=== PATIENT | male | born 1950 | race Caucasian/White ===

== ENCOUNTER 2019-09-25 08:06 | Inpatient (IN) ==
[2019-09-25] MEDS ORDERED: SODIUM CHLORIDE 0.9% 1,000 ML IV SCH (14:00)
[2019-09-25 14:11] LABS: Basophils % 0.1 % (0.0-0.8); Eosinophils # 0.2 10*3/uL (0.0-0.87); Eosinophils % 1.9 % (0.00-10.9); Hematocrit 28.5 VOL% (42.0-52.0); Hemoglobin 9.3 GM/DL (14.0-18.0); Immature Granulocytes % 1.1 %; Immature Granulocytes Absolute 0.09 #; Lymphocytes # 1.1 10*3/uL (1.4-4.0); Mean Corpuscular HGB Conc 32.6 GM/DL (32-36); Mean Corpuscular Volume 82.4 FL (87-102); Mean Platelet Volume 11.1 FL (9.6-12.0); Monocytes % 9.6 % (1.7-12.7); NRBC # 0.08 10*3/uL; Neutrophils % 73.3 % (38.7-73.9); Platelet Count 175 T/CUMM (130-400); Red Blood Count 3.46 MC/CUMM (3.8-5.5); Red Cell Distribution Width 16.6 % (9.3-17.3)
[2019-09-25 14:28] LABS: Alanine Aminotransferase 16 U/L (16-61); Albumin 3.2 G/DL (3.4-5.0); Alkaline Phosphatase 101 U/L (45-117); Aspartate Amino Transferase 9 U/L (0-37); Bilirubin,Total < 0.39 MG/DL (0.2-1.0); Blood Urea Nitrogen 114 MG/DL (7-18); Calcium 7.9 MG/DL (8.5-10.1); Estimated Glom Filtration Rate 12 ML/MIN; Glucose 93 MG/DL (74-106); Osmolality,Calculated 297.7 MOS/KG (273-304); Total Protein 7.4 G/DL (6.4-8.3)
[2019-09-25 14:37] LABS: ABG HCO3 11.6 MMOL/L (20-26); ABG Oxygen Saturation 95.8 % (95-100); ABG PCO2 42.6 MM HG (35-48); ABG TCO2 12.1 MMOL/L (23-27)
[2019-09-25 14:40] LABS: ABG PH 7.076 (7.35-7.45)
[2019-09-25] MEDS ORDERED: GLUCAGON 1 MG VIAL IM PRN (14:47)
[2019-09-25] MEDS ORDERED: ONDANSETRON 4 MG/2 ML VIAL IV PRN (14:47)
[2019-09-25] MEDS ORDERED: hydrALAZINE 20 MG/1 ML VIAL IV PRN (14:47)
[2019-09-25] MEDS ORDERED: DEXTROSE 50% 25 GM/50 ML VIAL IV PRN (14:47)
[2019-09-25] MEDS ORDERED: ACETAMINOPHEN 325 MG TABLET PO PRN (14:47)
[2019-09-25] MEDS ORDERED: SODIUM BICARBONATE 50 MEQ/50 ML VIAL IV ONE (14:53)
[2019-09-25] MEDS ORDERED: FUROSEMIDE 100 MG/10 ML VIAL IV ONE (15:14)
[2019-09-25 15:32] LABS: Alanine Aminotransferase 12 U/L (16-61); Albumin 3.2 G/DL (3.4-5.0); Alkaline Phosphatase 99 U/L (45-117); Aspartate Amino Transferase 11 U/L (0-37); Bilirubin,Total < 0.39 MG/DL (0.2-1.0); Blood Urea Nitrogen 119 MG/DL (7-18); Estimated Glom Filtration Rate 12 ML/MIN; Glucose 94 MG/DL (74-106); HDL Cholesterol 22 MG/DL (40-60); Osmolality,Calculated 299.7 MOS/KG (273-304); Risk Ratio 2.59; Total Protein 7.3 G/DL (6.4-8.3); Triglycerides 71 MG/DL (2-150); VLDL CHOLESTEROL 14.2 MG/DL
[2019-09-25] MEDS: SODIUM BICARB INJ 150 MEQ in STERILE WATER INJ 1,000 ML IV SCH (16:44)
[2019-09-25] MEDS: INSULIN LISPRO 100 UNIT/ML SUBCUT SCH ×2 (16:45→21:47)
[2019-09-25] MEDS: DOCUSATE SODIUM 100 MG CAPSULE PO SCH (21:48)
[2019-09-26 04:19] LABS: Calcium 7.7 MG/DL (8.5-10.1); Osmolality,Calculated 305.1 MOS/KG (273-304)
[2019-09-26 05:08] LABS: Basophils % 0.2 % (0.0-0.8); Eosinophils # 0.1 10*3/uL (0.0-0.87); Eosinophils % 1.4 % (0.00-10.9); Hematocrit 28.4 VOL% (42.0-52.0); Immature Granulocytes % 1.3 %; Immature Granulocytes Absolute 0.08 #; Lymphocytes # 0.8 10*3/uL (1.4-4.0); Lymphocytes % 12.6 % (21.2-54.2); Mean Corpuscular HGB Conc 31.7 GM/DL (32-36); Mean Corpuscular Volume 82.6 FL (87-102); Mean Platelet Volume 11.4 FL (9.6-12.0); Monocytes % 9.1 % (1.7-12.7); NRBC # 0.06 10*3/uL; Neutrophils % 75.4 % (38.7-73.9); Platelet Count 175 T/CUMM (130-400); Red Blood Count 3.44 MC/CUMM (3.8-5.5); Red Cell Distribution Width 16.1 % (9.3-17.3); White Blood Count 6.3 T/CUMM (4-12)
[2019-09-26 06:12] LABS: Apearance,Urine CLEAR (Clear); Bacteria,Urine Occasional /HPF (Few); Bilirubin,Urine Negative (Negative); Blood, Urine Small mg/dL (Negative); Glucose,Urine (UA) Negative (Negative); Hyaline Casts,Urine 12 /LPF (0-3); Ketones,Urine Negative (Negative); Mucus,Urine Occasional /LPF (Occasional); Nitrite,Urine Negative (Negative); Protein,Urine Negative; RBC,Urine 1 /HPF (0-4); Squamous Epithelial Cell,Urine Occasional /HPF (0-10); Urine Color Yellow (Yellow); Urine Specific Gravity 1.011 (1.001-1.035); Urine Urobilinogen < 2.0 EU/DL (0.2-1.0); WBC,Urine 3 /HPF (0-6)
[2019-09-26] MEDS: SODIUM BICARB INJ 150 MEQ in STERILE WATER INJ 1,000 ML IV SCH (06:45)
[2019-09-26 07:49] LABS: Alanine Aminotransferase 15 U/L (16-61); Albumin 3.1 G/DL (3.4-5.0); Alkaline Phosphatase 105 U/L (45-117); Aspartate Amino Transferase 12 U/L (0-37); Bilirubin,Direct < 0.100 MG/DL (0.0-0.20); Bilirubin,Indirect 0.3 MG/DL (0.0-1.0); Bilirubin,Total < 0.39 MG/DL (0.2-1.0); Total Protein 7.1 G/DL (6.4-8.3)
[2019-09-26 08:34] LABS: ABG Base Excess -10.7 MMOL/L (-2.5-2.5); ABG HCO3 17.5 MMOL/L (20-26); ABG Oxygen Saturation 97.4 % (95-100); ABG PCO2 49.6 MM HG (35-48); ABG PO2 119.5 MM HG (80-95); Allen Test Positive; Pt O2 Delivery Device BIPAP
[2019-09-26 08:36] LABS: ABG PH 7.165 (7.35-7.45)
[2019-09-26] MEDS ORDERED: metOLazone 5 MG TABLET PO SCH (09:00)
[2019-09-26] MEDS: DOCUSATE SODIUM 100 MG CAPSULE PO SCH ×2 (10:13→21:14)
[2019-09-26] MEDS ORDERED: SODIUM BICARBONATE 50 MEQ/50 ML VIAL IV ONE (11:28)
[2019-09-26] MEDS: HEPARIN 5,000 UNIT/1 ML VIAL SUBCUT SCH ×2 (14:34→23:41)
[2019-09-26] MEDS: ISOSORBIDE MONONITRATE 30 MG TABLET PO SCH (14:35)
[2019-09-26] MEDS: POTASSIUM CHLORIDE 20 MEQ TABLET PO SCH ×2 (14:35→21:14)
[2019-09-26] MEDS ORDERED: FUROSEMIDE 100 MG/10 ML VIAL IV SCH (16:00)
[2019-09-26] MEDS: SIMVASTATIN 20 MG TABLET PO SCH (21:14)
[2019-09-26] MEDS: carvediloL 3.125 MG TABLET PO SCH (21:14)
[2019-09-27 04:15] LABS: Basophils % 0.2 % (0.0-0.8); Eosinophils # 0.1 10*3/uL (0.0-0.87); Eosinophils % 1.3 % (0.00-10.9); Hematocrit 26.4 VOL% (42.0-52.0); Hemoglobin 8.5 GM/DL (14.0-18.0); Immature Granulocytes % 0.9 %; Immature Granulocytes Absolute 0.05 #; Lymphocytes # 0.6 10*3/uL (1.4-4.0); Lymphocytes % 10.2 % (21.2-54.2); Mean Corpuscular HGB Conc 32.2 GM/DL (32-36); Mean Corpuscular Volume 81.7 FL (87-102); Mean Platelet Volume 10.6 FL (9.6-12.0); Monocytes % 10.4 % (1.7-12.7); NRBC # 0.07 10*3/uL; Platelet Count 174 T/CUMM (130-400); Red Blood Count 3.23 MC/CUMM (3.8-5.5); Red Cell Distribution Width 16.1 % (9.3-17.3); White Blood Count 5.6 T/CUMM (4-12)
[2019-09-27 04:38] LABS: Calcium 7.1 MG/DL (8.5-10.1); Osmolality,Calculated 316.2 MOS/KG (273-304)
[2019-09-27 08:05] LABS: ABG Base Excess -6.6 MMOL/L (-2.5-2.5); ABG HCO3 20.7 MMOL/L (20-26); ABG PCO2 50.5 MM HG (35-48); ABG PH 7.231 (7.35-7.45); ABG PO2 135.2 MM HG (80-95); ABG TCO2 22.3 MMOL/L (23-27)
[2019-09-27] MEDS: carvediloL 3.125 MG TABLET PO SCH ×2 (09:11→21:04)
[2019-09-27] MEDS: POTASSIUM CHLORIDE 20 MEQ TABLET PO SCH ×3 (09:11→21:04)
[2019-09-27] MEDS: ISOSORBIDE MONONITRATE 30 MG TABLET PO SCH (09:11)
[2019-09-27] MEDS: DOCUSATE SODIUM 100 MG CAPSULE PO SCH (09:12)
[2019-09-27] MEDS ORDERED: DOCUSATE SODIUM 100 MG CAPSULE PO PRN (11:35)
[2019-09-27] MEDS: HEPARIN 5,000 UNIT/1 ML VIAL SUBCUT SCH (12:30)
[2019-09-27] MEDS ORDERED: SODIUM BICARBONATE 50 MEQ/50 ML VIAL IV ONE (12:44)
[2019-09-27] MEDS: SIMVASTATIN 20 MG TABLET PO SCH (21:04)
[2019-09-27] MEDS: GLIMEPIRIDE 4 MG TABLET PO SCH (21:04)
[2019-09-28] MEDS: HEPARIN 5,000 UNIT/1 ML VIAL SUBCUT SCH ×2 (00:21→12:39)
[2019-09-28 03:34] LABS: Allen Test Positive; Pt O2 Delivery Device BIPAP
[2019-09-28 03:35] LABS: ABG Base Excess -7.3 MMOL/L (-2.5-2.5); ABG HCO3 18.9 MMOL/L (20-26); ABG PCO2 40.2 MM HG (35-48); ABG PH 7.289 (7.35-7.45); ABG PO2 77.9 MM HG (80-95); ABG TCO2 20.1 MMOL/L (23-27)
[2019-09-28 03:36] LABS: ABG Oxygen Saturation 94.2 % (95-100)
[2019-09-28 05:48] LABS: Basophils % 0.2 % (0.0-0.8); Eosinophils # 0.1 10*3/uL (0.0-0.87); Eosinophils % 1.8 % (0.00-10.9); Hematocrit 24.1 VOL% (42.0-52.0); Immature Granulocytes % 1.8 %; Immature Granulocytes Absolute 0.11 #; Lymphocytes % 16.6 % (21.2-54.2); Mean Corpuscular HGB Conc 33.2 GM/DL (32-36); Mean Corpuscular Volume 79.5 FL (87-102); Mean Platelet Volume 11.1 FL (9.6-12.0); Monocytes % 11.5 % (1.7-12.7); NRBC # 0.11 10*3/uL; Neutrophils % 68.1 % (38.7-73.9); Platelet Count 176 T/CUMM (130-400); Red Blood Count 3.03 MC/CUMM (3.8-5.5); Red Cell Distribution Width 16.2 % (9.3-17.3)
[2019-09-28 05:52] LABS: Calcium 7.1 MG/DL (8.5-10.1); Osmolality,Calculated 315.4 MOS/KG (273-304)
[2019-09-28] MEDS: SODIUM BICARBONATE 650 MG TABLET PO SCH ×2 (08:45→21:01)
[2019-09-28] MEDS: carvediloL 3.125 MG TABLET PO SCH ×2 (08:45→21:01)
[2019-09-28] MEDS: GLIMEPIRIDE 4 MG TABLET PO SCH (08:46)
[2019-09-28] MEDS: ISOSORBIDE MONONITRATE 30 MG TABLET PO SCH (08:46)
[2019-09-28] MEDS: POTASSIUM CHLORIDE 20 MEQ TABLET PO SCH ×3 (08:46→21:01)
[2019-09-28] MEDS: allopurinoL 100 MG TABLET PO SCH (08:46)
[2019-09-28] MEDS: ASCORBIC ACID 500 MG TABLET PO SCH (08:46)
[2019-09-28] MEDS: SIMVASTATIN 20 MG TABLET PO SCH (21:01)
[2019-09-29] MEDS: HEPARIN 5,000 UNIT/1 ML VIAL SUBCUT SCH ×2 (00:15→13:32)
[2019-09-29 05:05] LABS: Basophils % 0.3 % (0.0-0.8); Eosinophils # 0.1 10*3/uL (0.0-0.87); Eosinophils % 1.9 % (0.00-10.9); Hematocrit 26.1 VOL% (42.0-52.0); Hemoglobin 8.5 GM/DL (14.0-18.0); Immature Granulocytes % 1.2 %; Immature Granulocytes Absolute 0.09 #; Lymphocytes # 1.4 10*3/uL (1.4-4.0); Lymphocytes % 18.7 % (21.2-54.2); Mean Corpuscular HGB Conc 32.6 GM/DL (32-36); Mean Corpuscular Volume 80.1 FL (87-102); Mean Platelet Volume 11.7 FL (9.6-12.0); Monocytes % 10.3 % (1.7-12.7); NRBC # 0.12 10*3/uL; Neutrophils % 67.6 % (38.7-73.9); Platelet Count 197 T/CUMM (130-400); Red Blood Count 3.26 MC/CUMM (3.8-5.5); Red Cell Distribution Width 16.6 % (9.3-17.3); White Blood Count 7.3 T/CUMM (4-12)
[2019-09-29 05:31] LABS: Calcium 7.6 MG/DL (8.5-10.1); Osmolality,Calculated 311.4 MOS/KG (273-304)
[2019-09-29] MEDS: SODIUM BICARBONATE 650 MG TABLET PO SCH ×2 (08:31→20:28)
[2019-09-29] MEDS: POTASSIUM CHLORIDE 20 MEQ TABLET PO SCH ×3 (08:32→20:28)
[2019-09-29] MEDS: allopurinoL 100 MG TABLET PO SCH (08:32)
[2019-09-29] MEDS: ISOSORBIDE MONONITRATE 30 MG TABLET PO SCH (08:32)
[2019-09-29] MEDS: carvediloL 3.125 MG TABLET PO SCH ×2 (08:32→20:28)
[2019-09-29] MEDS: ASCORBIC ACID 500 MG TABLET PO SCH (08:32)
[2019-09-29] MEDS: SIMVASTATIN 20 MG TABLET PO SCH (20:28)
[2019-09-29] MEDS: prednisoLONE ACETATE 1% OPH SUSP 5 ML BOTTLE RIGHT EYE SCH (20:29)
[2019-09-30] MEDS: HEPARIN 5,000 UNIT/1 ML VIAL SUBCUT SCH ×2 (02:15→13:57)
[2019-09-30 05:43] LABS: Basophils % 0.4 % (0.0-0.8); Eosinophils # 0.2 10*3/uL (0.0-0.87); Eosinophils % 3.2 % (0.00-10.9); Hematocrit 26.3 VOL% (42.0-52.0); Hemoglobin 8.3 GM/DL (14.0-18.0); Immature Granulocytes % 0.9 %; Immature Granulocytes Absolute 0.05 #; Lymphocytes % 18.1 % (21.2-54.2); Mean Corpuscular HGB Conc 31.6 GM/DL (32-36); Mean Platelet Volume 10.4 FL (9.6-12.0); Monocytes % 10.9 % (1.7-12.7); NRBC # 0.06 10*3/uL; Neutrophils % 66.5 % (38.7-73.9); Platelet Count 182 T/CUMM (130-400); Red Blood Count 3.17 MC/CUMM (3.8-5.5); Red Cell Distribution Width 16.3 % (9.3-17.3); White Blood Count 5.7 T/CUMM (4-12)
[2019-09-30 06:04] LABS: Calcium 8.1 MG/DL (8.5-10.1); Osmolality,Calculated 311.5 MOS/KG (273-304)
[2019-09-30] MEDS: ISOSORBIDE MONONITRATE 30 MG TABLET PO SCH (10:16)
[2019-09-30] MEDS: SODIUM BICARBONATE 650 MG TABLET PO SCH ×2 (10:16→22:33)
[2019-09-30] MEDS: allopurinoL 100 MG TABLET PO SCH (10:16)
[2019-09-30] MEDS: ASCORBIC ACID 500 MG TABLET PO SCH (10:16)
[2019-09-30] MEDS: POTASSIUM CHLORIDE 20 MEQ TABLET PO SCH ×3 (10:16→22:33)
[2019-09-30] MEDS: carvediloL 3.125 MG TABLET PO SCH ×2 (10:17→22:32)
[2019-09-30] MEDS: prednisoLONE ACETATE 1% OPH SUSP 5 ML BOTTLE RIGHT EYE SCH ×2 (10:19→22:34)
[2019-09-30] MEDS: MOXIFLOXACIN 0.5% OPH SOLN 3 ML BOTTLE BOTH EYES SCH ×4 (10:20→22:34)
[2019-09-30] MEDS ORDERED: BACITRACIN OPH OINT 3.5 GM TUBE BOTH EYES SCH (21:00)
[2019-09-30] MEDS: SIMVASTATIN 20 MG TABLET PO SCH (22:32)
[2019-10-01] MEDS: HEPARIN 5,000 UNIT/1 ML VIAL SUBCUT SCH ×2 (00:06→12:08)
[2019-10-01] MEDS: VANCOMYCIN 50 MG/ML 60 ML/BOTTLE PO SCH ×4 (00:06→17:34)
[2019-10-01 05:38] LABS: Basophils % 0.4 % (0.0-0.8); Eosinophils # 0.2 10*3/uL (0.0-0.87); Eosinophils % 3.9 % (0.00-10.9); Hematocrit 26.3 VOL% (42.0-52.0); Hemoglobin 8.4 GM/DL (14.0-18.0); Immature Granulocytes % 0.7 %; Immature Granulocytes Absolute 0.04 #; Lymphocytes % 17.7 % (21.2-54.2); Mean Corpuscular HGB Conc 31.9 GM/DL (32-36); Mean Platelet Volume 10.4 FL (9.6-12.0); Monocytes % 9.5 % (1.7-12.7); NRBC # 0.04 10*3/uL; Neutrophils % 67.8 % (38.7-73.9); Platelet Count 166 T/CUMM (130-400); Red Blood Count 3.17 MC/CUMM (3.8-5.5); Red Cell Distribution Width 16.6 % (9.3-17.3); White Blood Count 5.4 T/CUMM (4-12)
[2019-10-01 06:05] LABS: Calcium 8.3 MG/DL (8.5-10.1); Osmolality,Calculated 312.4 MOS/KG (273-304)
[2019-10-01] MEDS: SODIUM BICARBONATE 650 MG TABLET PO SCH ×2 (09:38→20:49)
[2019-10-01] MEDS: prednisoLONE ACETATE 1% OPH SUSP 5 ML BOTTLE RIGHT EYE SCH ×2 (09:38→20:50)
[2019-10-01] MEDS: ISOSORBIDE MONONITRATE 30 MG TABLET PO SCH (09:39)
[2019-10-01] MEDS: carvediloL 3.125 MG TABLET PO SCH ×2 (09:39→20:49)
[2019-10-01] MEDS: POTASSIUM CHLORIDE 20 MEQ TABLET PO SCH ×3 (09:39→20:49)
[2019-10-01] MEDS: allopurinoL 100 MG TABLET PO SCH (09:39)
[2019-10-01] MEDS: ASCORBIC ACID 500 MG TABLET PO SCH (09:39)
[2019-10-01] MEDS: MOXIFLOXACIN 0.5% OPH SOLN 3 ML BOTTLE BOTH EYES SCH ×6 (09:45→21:46)
[2019-10-01] MEDS: TOBRAMYCIN 0.3% OPH SOLN 5 ML BOTTLE BOTH EYES SCH ×4 (15:39→21:43)
[2019-10-01] MEDS: ERYTHROMYCIN 0.5% OPHT OINT 3.5 GM TUBE BOTH EYES SCH ×4 (15:43→21:46)
[2019-10-01] MEDS: SIMVASTATIN 20 MG TABLET PO SCH (20:49)
[2019-10-02] MEDS: HEPARIN 5,000 UNIT/1 ML VIAL SUBCUT SCH ×3 (00:11→23:46)
[2019-10-02] MEDS: MOXIFLOXACIN 0.5% OPH SOLN 3 ML BOTTLE BOTH EYES SCH ×12 (00:12→23:48)
[2019-10-02] MEDS: TOBRAMYCIN 0.3% OPH SOLN 5 ML BOTTLE BOTH EYES SCH ×12 (00:14→23:48)
[2019-10-02] MEDS: ERYTHROMYCIN 0.5% OPHT OINT 3.5 GM TUBE BOTH EYES SCH ×12 (00:15→23:48)
[2019-10-02] MEDS: VANCOMYCIN 50 MG/ML 60 ML/BOTTLE PO SCH ×5 (00:15→23:49)
[2019-10-02 05:27] LABS: Basophils % 0.4 % (0.0-0.8); Eosinophils # 0.3 10*3/uL (0.0-0.87); Eosinophils % 5.7 % (0.00-10.9); Hematocrit 28.4 VOL% (42.0-52.0); Hemoglobin 8.9 GM/DL (14.0-18.0); Immature Granulocytes % 0.8 %; Immature Granulocytes Absolute 0.04 #; Lymphocytes # 0.9 10*3/uL (1.4-4.0); Lymphocytes % 16.6 % (21.2-54.2); Mean Corpuscular HGB Conc 31.3 GM/DL (32-36); Mean Corpuscular Volume 84.3 FL (87-102); Mean Platelet Volume 10.9 FL (9.6-12.0); Monocytes % 7.8 % (1.7-12.7); NRBC # 0.02 10*3/uL; Neutrophils % 68.7 % (38.7-73.9); Platelet Count 170 T/CUMM (130-400); Red Blood Count 3.37 MC/CUMM (3.8-5.5); Red Cell Distribution Width 16.6 % (9.3-17.3); White Blood Count 5.2 T/CUMM (4-12)
[2019-10-02 05:48] LABS: Osmolality,Calculated 309.8 MOS/KG (273-304)
[2019-10-02] MEDS: allopurinoL 100 MG TABLET PO SCH (10:29)
[2019-10-02] MEDS: ISOSORBIDE MONONITRATE 30 MG TABLET PO SCH (10:29)
[2019-10-02] MEDS: POTASSIUM CHLORIDE 20 MEQ TABLET PO SCH (10:30)
[2019-10-02] MEDS: SODIUM BICARBONATE 650 MG TABLET PO SCH ×2 (10:30→21:44)
[2019-10-02] MEDS: carvediloL 3.125 MG TABLET PO SCH ×2 (10:30→21:44)
[2019-10-02] MEDS: ASCORBIC ACID 500 MG TABLET PO SCH (10:31)
[2019-10-02] MEDS: prednisoLONE ACETATE 1% OPH SUSP 5 ML BOTTLE RIGHT EYE SCH ×2 (10:32→21:44)
[2019-10-02] MEDS: SIMVASTATIN 20 MG TABLET PO SCH (21:44)
[2019-10-03] MEDS: TOBRAMYCIN 0.3% OPH SOLN 5 ML BOTTLE BOTH EYES SCH ×7 (02:27→22:29)
[2019-10-03] MEDS: MOXIFLOXACIN 0.5% OPH SOLN 3 ML BOTTLE BOTH EYES SCH ×7 (02:29→22:30)
[2019-10-03] MEDS: ERYTHROMYCIN 0.5% OPHT OINT 3.5 GM TUBE BOTH EYES SCH ×7 (02:31→22:32)
[2019-10-03 04:51] LABS: Eosinophils # 0.3 10*3/uL (0.0-0.87); Eosinophils % 4.9 % (0.00-10.9); Hematocrit 27.2 VOL% (42.0-52.0); Hemoglobin 8.3 GM/DL (14.0-18.0); Immature Granulocytes % 0.4 %; Immature Granulocytes Absolute 0.02 #; Mean Corpuscular HGB Conc 30.5 GM/DL (32-36); Mean Platelet Volume 11.4 FL (9.6-12.0); Monocytes % 7.4 % (1.7-12.7); Neutrophils % 68.3 % (38.7-73.9); Platelet Count 156 T/CUMM (130-400); Red Cell Distribution Width 16.6 % (9.3-17.3); White Blood Count 5.3 T/CUMM (4-12)
[2019-10-03 05:16] LABS: Calcium 8.3 MG/DL (8.5-10.1); Osmolality,Calculated 309.5 MOS/KG (273-304)
[2019-10-03] MEDS: VANCOMYCIN 50 MG/ML 60 ML/BOTTLE PO SCH ×3 (05:44→17:58)
[2019-10-03] MEDS: carvediloL 3.125 MG TABLET PO SCH ×2 (08:36→22:21)
[2019-10-03] MEDS: SODIUM BICARBONATE 650 MG TABLET PO SCH ×2 (10:01→22:21)
[2019-10-03] MEDS: ASCORBIC ACID 500 MG TABLET PO SCH (10:01)
[2019-10-03] MEDS: allopurinoL 100 MG TABLET PO SCH (10:02)
[2019-10-03] MEDS: ISOSORBIDE MONONITRATE 30 MG TABLET PO SCH (10:02)
[2019-10-03] MEDS: POTASSIUM CHLORIDE 20 MEQ TABLET PO SCH (10:02)
[2019-10-03] MEDS: prednisoLONE ACETATE 1% OPH SUSP 5 ML BOTTLE RIGHT EYE SCH ×2 (10:03→22:23)
[2019-10-03] MEDS: HEPARIN 5,000 UNIT/1 ML VIAL SUBCUT SCH (14:02)
[2019-10-03] MEDS: SIMVASTATIN 20 MG TABLET PO SCH (22:21)
[2019-10-04] MEDS: HEPARIN 5,000 UNIT/1 ML VIAL SUBCUT SCH ×2 (00:36→14:32)
[2019-10-04] MEDS: VANCOMYCIN 50 MG/ML 60 ML/BOTTLE PO SCH ×4 (00:36→18:24)
[2019-10-04] MEDS: MOXIFLOXACIN 0.5% OPH SOLN 3 ML BOTTLE BOTH EYES SCH ×6 (02:30→21:27)
[2019-10-04] MEDS: TOBRAMYCIN 0.3% OPH SOLN 5 ML BOTTLE BOTH EYES SCH ×6 (02:32→21:26)
[2019-10-04] MEDS: ERYTHROMYCIN 0.5% OPHT OINT 3.5 GM TUBE BOTH EYES SCH ×6 (02:37→21:27)
[2019-10-04] MEDS: allopurinoL 100 MG TABLET PO SCH (09:16)
[2019-10-04] MEDS: ASCORBIC ACID 500 MG TABLET PO SCH (09:16)
[2019-10-04] MEDS: POTASSIUM CHLORIDE 20 MEQ TABLET PO SCH (09:16)
[2019-10-04] MEDS: ISOSORBIDE MONONITRATE 30 MG TABLET PO SCH (09:16)
[2019-10-04] MEDS: carvediloL 3.125 MG TABLET PO SCH (09:17)
[2019-10-04] MEDS: SODIUM BICARBONATE 650 MG TABLET PO SCH ×2 (09:17→21:17)
[2019-10-04] MEDS: prednisoLONE ACETATE 1% OPH SUSP 5 ML BOTTLE RIGHT EYE SCH ×2 (09:19→21:26)
[2019-10-04] MEDS: SIMVASTATIN 20 MG TABLET PO SCH (21:17)
[2019-10-04] MEDS: carvediloL 6.25 MG TABLET PO SCH (21:17)
[2019-10-05] MEDS: HEPARIN 5,000 UNIT/1 ML VIAL SUBCUT SCH ×2 (00:15→12:24)
[2019-10-05] MEDS: VANCOMYCIN 50 MG/ML 60 ML/BOTTLE PO SCH ×3 (00:15→12:24)
[2019-10-05] MEDS: TOBRAMYCIN 0.3% OPH SOLN 5 ML BOTTLE BOTH EYES SCH ×3 (02:13→09:40)
[2019-10-05] MEDS: ERYTHROMYCIN 0.5% OPHT OINT 3.5 GM TUBE BOTH EYES SCH ×3 (02:13→09:41)
[2019-10-05] MEDS: MOXIFLOXACIN 0.5% OPH SOLN 3 ML BOTTLE BOTH EYES SCH ×3 (02:14→09:39)
[2019-10-05 06:38] LABS: Basophils % 0.4 % (0.0-0.8); Eosinophils # 0.3 10*3/uL (0.0-0.87); Eosinophils % 5.5 % (0.00-10.9); Hematocrit 27.1 VOL% (42.0-52.0); Hemoglobin 8.5 GM/DL (14.0-18.0); Immature Granulocytes % 0.4 %; Immature Granulocytes Absolute 0.02 #; Lymphocytes # 0.7 10*3/uL (1.4-4.0); Lymphocytes % 14.5 % (21.2-54.2); Mean Corpuscular HGB Conc 31.4 GM/DL (32-36); Mean Corpuscular Volume 84.4 FL (87-102); Mean Platelet Volume 11.1 FL (9.6-12.0); Monocytes % 5.1 % (1.7-12.7); Neutrophils % 74.1 % (38.7-73.9); Platelet Count 143 T/CUMM (130-400); Red Blood Count 3.21 MC/CUMM (3.8-5.5); Red Cell Distribution Width 16.4 % (9.3-17.3)
[2019-10-05 06:59] LABS: Albumin 2.9 G/DL (3.4-5.0); Bilirubin,Total 1.2 MG/DL (0.2-1.0); Calcium 8.6 MG/DL (8.5-10.1); Osmolality,Calculated 305.7 MOS/KG (273-304); Total Protein 7.1 G/DL (6.4-8.3)
[2019-10-05] MEDS: SODIUM BICARBONATE 650 MG TABLET PO SCH (09:28)
[2019-10-05] MEDS: ASCORBIC ACID 500 MG TABLET PO SCH (09:28)
[2019-10-05] MEDS: ISOSORBIDE MONONITRATE 30 MG TABLET PO SCH (09:29)
[2019-10-05] MEDS: POTASSIUM CHLORIDE 20 MEQ TABLET PO SCH (09:29)
[2019-10-05] MEDS: allopurinoL 100 MG TABLET PO SCH (09:29)
[2019-10-05] MEDS: carvediloL 6.25 MG TABLET PO SCH (09:29)
[2019-10-05] MEDS: prednisoLONE ACETATE 1% OPH SUSP 5 ML BOTTLE RIGHT EYE SCH (09:37)
[2019-10-05 12:07] VITALS: BP 147/74
== END 2019-10-05 16:00 | disposition home health service (06) | DRG 682 ==
LOC: N.5E 08:50 → SUATTDRO 12:08 → N.CC 15:28 → N.3E 09-27 16:30
PROVIDERS: ADMIT Internal Medicine; ATTEND Internal Medicine

== ENCOUNTER 2020-03-15 11:07 | Inpatient (IN) ==
[2020-03-15 11:51] LABS: Basophils % 0.3 % (0.0-0.8); Eosinophils # 0.3 10*3/uL (0.0-0.87); Eosinophils % 5.3 % (0.00-10.9); Hematocrit 22.4 VOL% (42.0-52.0); Hemoglobin 7.2 GM/DL (14.0-18.0); Immature Granulocytes % 1.1 %; Immature Granulocytes Absolute 0.07 #; Lymphocytes # 0.6 10*3/uL (1.4-4.0); Lymphocytes % 9.7 % (21.2-54.2); Mean Corpuscular HGB Conc 32.1 GM/DL (32-36); Mean Corpuscular Volume 79.4 FL (87-102); Mean Platelet Volume 11.3 FL (9.6-12.0); Monocytes % 8.7 % (1.7-12.7); NRBC # 0.09 10*3/uL; Neutrophils % 74.9 % (38.7-73.9); Platelet Count 197 T/CUMM (130-400); Red Blood Count 2.82 MC/CUMM (3.8-5.5); Red Cell Distribution Width 18.3 % (9.3-17.3); White Blood Count 6.2 T/CUMM (4-12)
[2020-03-15 12:02] LABS: INR 1.2; PT Patient Result 12.4 SECS (9.8-11.9)
[2020-03-15 12:23] LABS: Alanine Aminotransferase 13 U/L (16-61); Albumin 3.1 G/DL (3.4-5.0); Alkaline Phosphatase 89 U/L (45-117); Aspartate Amino Transferase 8 U/L (0-37); Bilirubin,Total < 0.39 MG/DL (0.2-1.0); Blood Urea Nitrogen 158 MG/DL (7-18); Estimated Glom Filtration Rate 4 ML/MIN; Glucose 216 MG/DL (74-106); Osmolality,Calculated 326.2 MOS/KG (273-304); Total Protein 6.9 G/DL (6.4-8.3)
[2020-03-15 12:26] LABS: Calcium 5.8 MG/DL (8.5-10.1)
[2020-03-15 14:09] LABS: Alanine Aminotransferase 11 U/L (16-61); Albumin 3.1 G/DL (3.4-5.0); Alkaline Phosphatase 87 U/L (45-117); Aspartate Amino Transferase 8 U/L (0-37); Bilirubin,Direct < 0.100 MG/DL (0.0-0.20); Bilirubin,Indirect 0.3 MG/DL (0.0-1.0); Bilirubin,Total < 0.39 MG/DL (0.2-1.0); Total Protein 6.7 G/DL (6.4-8.3)
[2020-03-15 14:40] LABS: Bilirubin,Urine Negative (Negative); Blood, Urine Negative (Negative); Glucose,Urine (UA) >=500 mg/dL (Negative); Hyaline Casts,Urine 3 /LPF (0-3); Ketones,Urine Negative (Negative); Mucus,Urine Occasional /LPF (Occasional); Nitrite,Urine Negative (Negative); Protein,Urine 100 MG/DL; RBC,Urine 1 /HPF (0-4); Urine Appearance Slightly Hazy (Clear); Urine Color Yellow (Yellow); Urine Specific Gravity 1.012 (1.001-1.035); Urine Urobilinogen < 2.0 EU/DL (0.2-1.0); WBC,Urine 44 /HPF (0-6)
[2020-03-15] MEDS ORDERED: DEXTROSE 50% 25 GM/50 ML VIAL IV PRN (15:27)
[2020-03-15] MEDS ORDERED: ONDANSETRON 4 MG/2 ML VIAL IV PRN (15:27)
[2020-03-15] MEDS ORDERED: hydrALAZINE 20 MG/1 ML VIAL IV PRN (15:27)
[2020-03-15] MEDS ORDERED: LACTULOSE 20 GM/30 ML UDCUP PO PRN (15:27)
[2020-03-15] MEDS ORDERED: guaiFENesin/DM ER 600-30 MG TABLET PO PRN (15:27)
[2020-03-15] MEDS ORDERED: GLUCAGON 1 MG VIAL IM PRN (15:27)
[2020-03-15] MEDS ORDERED: ACETAMINOPHEN 325 MG TABLET PO PRN (15:27)
[2020-03-15] MEDS ORDERED: CARBOXYMETHYLCELLULOSE 1% OPH SOLN BOTH EYES PRN (15:34)
[2020-03-15 16:14] LABS: % Iron Saturation 17.2 % (18-50); Ferritin 49.1 ng/ml (26-388)
[2020-03-15 16:17] LABS: Folate 9.5 NG/ML (5.4-24.0); Vitamin B12 661 PG/ML (211-911)
[2020-03-15] MEDS: INSULIN REGULAR 100 UNIT/ML SUBCUT SCH ×2 (18:36→21:30)
[2020-03-15 18:52] LABS: Basophils % 0.3 % (0.0-0.8); Eosinophils # 0.4 10*3/uL (0.0-0.87); Eosinophils % 6.5 % (0.00-10.9); Hematocrit 22.9 VOL% (42.0-52.0); Hemoglobin 7.3 GM/DL (14.0-18.0); Immature Granulocytes % 1.1 %; Immature Granulocytes Absolute 0.07 #; Lymphocytes # 0.7 10*3/uL (1.4-4.0); Lymphocytes % 10.9 % (21.2-54.2); Mean Corpuscular HGB Conc 31.9 GM/DL (32-36); Mean Corpuscular Volume 80.4 FL (87-102); Mean Platelet Volume 11.4 FL (9.6-12.0); NRBC # 0.06 10*3/uL; Neutrophils % 74.2 % (38.7-73.9); Platelet Count 206 T/CUMM (130-400); Red Blood Count 2.85 MC/CUMM (3.8-5.5); Red Cell Distribution Width 18.6 % (9.3-17.3); White Blood Count 6.2 T/CUMM (4-12)
[2020-03-15 19:55] LABS: Sedimentation Rate-Westergren 89 MM/HR (0-20)
[2020-03-15] MEDS: SIMVASTATIN 20 MG TABLET PO SCH (21:30)
[2020-03-15] MEDS: LATANOPROST 0.005% OPH SOLN 2.5 ML BOTTLE BOTH EYES SCH (21:30)
[2020-03-15] MEDS: cefTRIAXone 1,000 MG in SYRINGE 1 EACH IV SCH (21:30)
[2020-03-15] MEDS: DULoxetine 30 MG CAPSULE PO SCH (21:30)
[2020-03-15] MEDS: INSULIN GLARGINE 100 UNIT/ML SUBCUT SCH (21:30)
[2020-03-15] MEDS: metOLazone 5 MG TABLET PO SCH (21:30)
[2020-03-15] MEDS: SODIUM BICARBONATE 650 MG TABLET PO SCH (21:30)
[2020-03-15] MEDS: DORZOLAMIDE/TIMOLOL OPH SOLN 10 ML BOTTLE BOTH EYES SCH (21:30)
[2020-03-15] MEDS: carvediloL 12.5 MG TABLET PO SCH (21:30)
[2020-03-15] MEDS: BUMETANIDE 1 MG TABLET PO SCH (21:30)
[2020-03-16 04:13] LABS: Basophils % 0.4 % (0.0-0.8); Eosinophils # 0.3 10*3/uL (0.0-0.87); Eosinophils % 4.4 % (0.00-10.9); Hematocrit 22.5 VOL% (42.0-52.0); Hemoglobin 7.3 GM/DL (14.0-18.0); Immature Granulocytes % 1.4 %; Immature Granulocytes Absolute 0.08 #; Lymphocytes # 0.4 10*3/uL (1.4-4.0); Lymphocytes % 7.8 % (21.2-54.2); Mean Corpuscular HGB Conc 32.4 GM/DL (32-36); Mean Corpuscular Volume 79.5 FL (87-102); Mean Platelet Volume 10.9 FL (9.6-12.0); Monocytes % 6.9 % (1.7-12.7); NRBC # 0.08 10*3/uL; Neutrophils % 79.1 % (38.7-73.9); Platelet Count 172 T/CUMM (130-400); Red Blood Count 2.83 MC/CUMM (3.8-5.5); Red Cell Distribution Width 18.3 % (9.3-17.3); White Blood Count 5.7 T/CUMM (4-12)
[2020-03-16 04:40] LABS: Calcium 5.9 MG/DL (8.5-10.1); Osmolality,Calculated 330.2 MOS/KG (273-304); Risk Ratio 2.11; Thyroid Stimulating Hormone 4.69 uIU/ml (0.358-3.74); VLDL CHOLESTEROL 10.6 MG/DL
[2020-03-16] MEDS ORDERED: ceFAZolin 1,000 MG in SYRINGE 1 EACH IV ONE (06:00)
[2020-03-16 07:22] LABS: Free T4 (Free Thyroxine) 0.72 NG/DL (0.76-1.46)
[2020-03-16] MEDS ORDERED: FERROUS SULFATE 325 MG TABLET PO SCH (09:00)
[2020-03-16] MEDS: INSULIN REGULAR 100 UNIT/ML SUBCUT SCH ×3 (09:34→22:34)
[2020-03-16] MEDS ORDERED: HEPARIN 5,000 UNIT/1 ML VIAL ONE (09:35)
[2020-03-16] MEDS ORDERED: BUPIVACAINE MPF 0.25% 30 ML VIAL ONE (09:35)
[2020-03-16] MEDS ORDERED: LIDOCAINE 1%/EPI INJ 20 ML VIAL ONE (09:35)
[2020-03-16] MEDS: BUMETANIDE 1 MG TABLET PO SCH ×2 (09:40→22:17)
[2020-03-16] MEDS: carvediloL 12.5 MG TABLET PO SCH ×2 (09:40→22:19)
[2020-03-16] MEDS: DORZOLAMIDE/TIMOLOL OPH SOLN 10 ML BOTTLE BOTH EYES SCH ×2 (09:40→22:33)
[2020-03-16] MEDS: ISOSORBIDE MONONITRATE 30 MG TABLET PO SCH (09:41)
[2020-03-16] MEDS: DULoxetine 30 MG CAPSULE PO SCH ×2 (09:41→22:19)
[2020-03-16] MEDS: ASCORBIC ACID 500 MG TABLET PO SCH (09:41)
[2020-03-16] MEDS: SODIUM BICARBONATE 650 MG TABLET PO SCH ×2 (09:41→22:18)
[2020-03-16] MEDS: metOLazone 5 MG TABLET PO SCH ×2 (09:42→22:19)
[2020-03-16] MEDS ORDERED: ceFAZolin 1,000 MG VIAL ONE (09:54)
[2020-03-16] MEDS ORDERED: SODIUM CHLORIDE 0.9% 250 ML IV SCH (10:00)
[2020-03-16] MEDS ORDERED: MIDAZOLAM 2 MG/2 ML VIAL ONE (10:40)
[2020-03-16] MEDS ORDERED: HEPARIN 10,000 UNIT/10 ML VIAL IV PRN (13:23)
[2020-03-16] MEDS: cefTRIAXone 1,000 MG in SYRINGE 1 EACH IV SCH (17:15)
[2020-03-16] MEDS: TADALAFIL 20 MG PO SCH (17:28)
[2020-03-16 18:12] LABS: Hepatitis B Surface Ag Quant < 0.10 Index; Hepatitis B Surface Ag Result Negative (Negative); Hepatitis C Virus Ab Result Negative (Negative)
[2020-03-16] MEDS: SIMVASTATIN 20 MG TABLET PO SCH (22:19)
[2020-03-16] MEDS: FERROUS SULFATE 325 MG TABLET PO SCH (22:19)
[2020-03-16] MEDS: INSULIN GLARGINE 100 UNIT/ML SUBCUT SCH (22:33)
[2020-03-16] MEDS: LATANOPROST 0.005% OPH SOLN 2.5 ML BOTTLE BOTH EYES SCH (22:33)
[2020-03-17 05:44] LABS: Basophils % 0.2 % (0.0-0.8); Eosinophils # 0.1 10*3/uL (0.0-0.87); Eosinophils % 2.2 % (0.00-10.9); Hematocrit 22.7 VOL% (42.0-52.0); Hemoglobin 7.3 GM/DL (14.0-18.0); Immature Granulocytes % 2.1 %; Immature Granulocytes Absolute 0.12 #; Lymphocytes # 0.4 10*3/uL (1.4-4.0); Lymphocytes % 7.2 % (21.2-54.2); Mean Corpuscular HGB Conc 32.2 GM/DL (32-36); Mean Corpuscular Volume 79.9 FL (87-102); Mean Platelet Volume 11.5 FL (9.6-12.0); NRBC # 0.11 10*3/uL; Neutrophils % 82.3 % (38.7-73.9); Platelet Count 177 T/CUMM (130-400); Red Blood Count 2.84 MC/CUMM (3.8-5.5); Red Cell Distribution Width 18.6 % (9.3-17.3); White Blood Count 5.8 T/CUMM (4-12)
[2020-03-17] MEDS: LEVOTHYROXINE 100 MCG TABLET PO SCH (06:08)
[2020-03-17 06:12] LABS: Calcium 6.2 MG/DL (8.5-10.1); Osmolality,Calculated 312.2 MOS/KG (273-304)
[2020-03-17] MEDS: INSULIN REGULAR 100 UNIT/ML SUBCUT SCH ×4 (07:34→22:30)
[2020-03-17] MEDS ORDERED: SODIUM CHLORIDE 0.9% 1,000 ML IV PRN (08:58)
[2020-03-17] MEDS: SODIUM BICARBONATE 650 MG TABLET PO SCH ×2 (09:55→21:20)
[2020-03-17] MEDS: ISOSORBIDE MONONITRATE 30 MG TABLET PO SCH (09:55)
[2020-03-17] MEDS: carvediloL 12.5 MG TABLET PO SCH ×2 (09:55→21:34)
[2020-03-17] MEDS: DULoxetine 30 MG CAPSULE PO SCH ×2 (09:55→21:21)
[2020-03-17] MEDS: FERROUS SULFATE 325 MG TABLET PO SCH ×2 (09:55→21:21)
[2020-03-17] MEDS: BUMETANIDE 1 MG TABLET PO SCH ×2 (09:55→21:20)
[2020-03-17] MEDS: metOLazone 5 MG TABLET PO SCH ×2 (09:55→21:21)
[2020-03-17] MEDS: ASCORBIC ACID 500 MG TABLET PO SCH (09:55)
[2020-03-17] MEDS: DORZOLAMIDE/TIMOLOL OPH SOLN 10 ML BOTTLE BOTH EYES SCH ×2 (09:56→21:20)
[2020-03-17] MEDS: TADALAFIL 20 MG PO SCH (10:13)
[2020-03-17] MEDS ORDERED: SKIN HEALING OINT (AQUAPHOR) 50 GM TUBE TOP PRN (11:39)
[2020-03-17 12:48] LABS: Hemoglobin A1 (Alkaline) 64.3 % (96.5-98.5); Hemoglobin A2 (Alkaline) 3.3 % (1.5-3.5)
[2020-03-17 12:57] LABS: Hemoglobin S (Alkaline) 32.4 %
[2020-03-17] MEDS: LATANOPROST 0.005% OPH SOLN 2.5 ML BOTTLE BOTH EYES SCH (21:20)
[2020-03-17] MEDS: SIMVASTATIN 20 MG TABLET PO SCH (21:34)
[2020-03-17] MEDS: INSULIN GLARGINE 100 UNIT/ML SUBCUT SCH (22:30)
[2020-03-18 05:41] LABS: Basophils % 0.2 % (0.0-0.8); Eosinophils # 0.2 10*3/uL (0.0-0.87); Eosinophils % 3.2 % (0.00-10.9); Hematocrit 24.9 VOL% (42.0-52.0); Hemoglobin 7.9 GM/DL (14.0-18.0); Immature Granulocytes % 1.2 %; Immature Granulocytes Absolute 0.07 #; Lymphocytes # 0.4 10*3/uL (1.4-4.0); Lymphocytes % 7.7 % (21.2-54.2); Mean Corpuscular HGB Conc 31.7 GM/DL (32-36); Mean Corpuscular Volume 81.6 FL (87-102); Mean Platelet Volume 11.7 FL (9.6-12.0); Monocytes % 5.8 % (1.7-12.7); NRBC # 0.14 10*3/uL; Neutrophils % 81.9 % (38.7-73.9); Platelet Count 187 T/CUMM (130-400); Red Blood Count 3.05 MC/CUMM (3.8-5.5); Red Cell Distribution Width 18.1 % (9.3-17.3); White Blood Count 5.7 T/CUMM (4-12)
[2020-03-18 06:11] LABS: Calcium 6.8 MG/DL (8.5-10.1); Osmolality,Calculated 298.1 MOS/KG (273-304)
[2020-03-18] MEDS: LEVOTHYROXINE 100 MCG TABLET PO SCH (06:46)
[2020-03-18 07:36] VITALS: BP 130/88
[2020-03-18] MEDS: INSULIN REGULAR 100 UNIT/ML SUBCUT SCH ×3 (08:16→15:36)
[2020-03-18] MEDS ORDERED: SODIUM CHLORIDE 0.9% 1,000 ML IV PRN (10:16)
[2020-03-18] MEDS: FERROUS SULFATE 325 MG TABLET PO SCH (14:40)
[2020-03-18] MEDS: ISOSORBIDE MONONITRATE 30 MG TABLET PO SCH (14:41)
[2020-03-18] MEDS: ASCORBIC ACID 500 MG TABLET PO SCH (14:41)
[2020-03-18] MEDS: carvediloL 12.5 MG TABLET PO SCH (14:41)
[2020-03-18] MEDS: DULoxetine 30 MG CAPSULE PO SCH (14:41)
[2020-03-18] MEDS: DORZOLAMIDE/TIMOLOL OPH SOLN 10 ML BOTTLE BOTH EYES SCH (14:42)
[2020-03-18] MEDS: TADALAFIL 20 MG PO SCH (14:43)
[2020-03-18] MEDS: BUMETANIDE 1 MG TABLET PO SCH (15:34)
[2020-03-18] MEDS: SODIUM BICARBONATE 650 MG TABLET PO SCH (15:35)
[2020-03-18] MEDS: metOLazone 5 MG TABLET PO SCH (15:35)
== END 2020-03-18 16:11 | DRG 674 ==
LOC: N.ED 11:07 → N.EDINP 15:27 → SUATTDRO 15:27 → N.3E 03-16 09:40
PROVIDERS: ADMIT Internal Medicine; ATTEND Internal Medicine

== ENCOUNTER 2020-11-18 17:13 | Observation (INO) ==
[2020-11-18 18:50] LABS: Basophils % 0.4 % (0.0-0.8); Eosinophils # 0.1 10*3/uL (0.0-0.87); Eosinophils % 2.5 % (0.00-10.9); Hematocrit 35.1 VOL% (42.0-52.0); Hemoglobin 11.4 GM/DL (14.0-18.0); Immature Granulocytes % 0.2 %; Immature Granulocytes Absolute 0.01 #; Lymphocytes # 0.9 10*3/uL (1.4-4.0); Lymphocytes % 18.8 % (21.2-54.2); Mean Corpuscular HGB Conc 32.5 GM/DL (32-36); Monocytes % 9.1 % (1.7-12.7); Platelet Count 176 T/CUMM (130-400); Red Blood Count 4.08 MC/CUMM (3.8-5.5); Red Cell Distribution Width 16.1 % (9.3-17.3); White Blood Count 4.7 T/CUMM (4-12)
[2020-11-18 19:01] LABS: PT Patient Result 11.4 SECS (10.5-12.0)
[2020-11-18 19:03] LABS: Calcium 8.9 MG/DL (8.5-10.1); Potassium 3.5 MMOL/L (3.5-5.1)
[2020-11-18 19:04] LABS: Partial Thromboplastin Time 80.8 SECS (23.9-33.8)
[2020-11-18] MEDS ORDERED: ACETAMINOPHEN 325 MG TABLET PO PRN (19:16)
[2020-11-18] MEDS ORDERED: ONDANSETRON 4 MG/2 ML VIAL IV PRN (19:16)
[2020-11-18] MEDS ORDERED: ONDANSETRON 4 MG TABLET PO PRN (19:56)
[2020-11-18] MEDS ORDERED: SIMVASTATIN 10 MG TABLET PO SCH (21:00)
[2020-11-18] MEDS ORDERED: TADALAFIL 20 MG PO SCH (21:00)
[2020-11-18] MEDS ORDERED: LATANOPROST 0.005% OPH SOLN 2.5 ML BOTTLE BOTH EYES SCH (21:00)
[2020-11-18] MEDS ORDERED: INSULIN GLARGINE 100 UNIT/ML SUBCUT SCH (21:00)
[2020-11-18] MEDS: DORZOLAMIDE/TIMOLOL OPH SOLN 10 ML BOTTLE BOTH EYES SCH (22:04)
[2020-11-18] MEDS: SEVELAMER CARBONATE 800 MG TABLET PO SCH (22:05)
[2020-11-18] MEDS: carvediloL 12.5 MG TABLET PO SCH (22:05)
[2020-11-19 06:12] LABS: Basophils % 0.6 % (0.0-0.8); Eosinophils # 0.1 10*3/uL (0.0-0.87); Eosinophils % 2.5 % (0.00-10.9); Hematocrit 31.7 VOL% (42.0-52.0); Hemoglobin 10.6 GM/DL (14.0-18.0); Immature Granulocytes % 0.4 %; Immature Granulocytes Absolute 0.02 #; Lymphocytes % 20.5 % (21.2-54.2); Mean Corpuscular HGB Conc 33.4 GM/DL (32-36); Mean Corpuscular Volume 85.2 FL (87-102); Mean Platelet Volume 10.9 FL (9.6-12.0); Monocytes % 10.6 % (1.7-12.7); Neutrophils % 65.4 % (38.7-73.9); Platelet Count 149 T/CUMM (130-400); Red Blood Count 3.72 MC/CUMM (3.8-5.5); White Blood Count 4.7 T/CUMM (4-12)
[2020-11-19 06:26] LABS: PT Patient Result 11.3 SECS (10.5-12.0); Partial Thromboplastin Time 31.6 SECS (23.9-33.8)
[2020-11-19 06:31] LABS: Potassium 3.7 MMOL/L (3.5-5.1)
[2020-11-19] MEDS: carvediloL 12.5 MG TABLET PO SCH (08:36)
[2020-11-19] MEDS: SEVELAMER CARBONATE 800 MG TABLET PO SCH ×2 (08:39→11:22)
[2020-11-19] MEDS: DORZOLAMIDE/TIMOLOL OPH SOLN 10 ML BOTTLE BOTH EYES SCH (08:40)
[2020-11-19] MEDS ORDERED: PANTOPRAZOLE 40 MG TABLET PO SCH ×2 (09:00)
[2020-11-19] MEDS ORDERED: ISOSORBIDE MONONITRATE 30 MG TABLET PO SCH (09:00)
[2020-11-19 12:04] VITALS: BP 130/73
== END 2020-11-19 14:58 | disposition home or self-care (01) ==
LOC: N.ED 17:13 → N.EDINP 17:13 → N.3E 20:20
PROVIDERS: ADMIT Surgery; ATTEND Surgery